=== PATIENT | male | born 1955 | race Caucasian/White ===

== ENCOUNTER → 2017-03-22 | Outpatient (CLI) | payer MEDICAID ==
[~2017-03-22] MED LIST: FINA5TAB4 PO; LIDOCAINE 1%, 20ML ONE; OMEPRAZOLE PO; SILO8CAP PO; TAMS-11 PO
== END | disposition home or self-care (01) ==
LOC: RAD 12:34
PROVIDERS: ATTEND Surgery
DX: E07.9 Disorder of thyroid, unspecified (principal)
CPT/HCPCS: 76536; 76942; J3490

== ENCOUNTER → 2017-04-19 | Outpatient (CLI) | payer MEDICAID ==
[~2017-04-19] MED LIST changes: -LIDOCAINE 1%, 20ML ONE; +OMNIPAQUE 350 MG/ML, 100ML BOTTLE ONE
== END ==
LOC: CFH 11:43
PROVIDERS: ATTEND Student in an Organized Health Care Education/Training Program
DX: Z01.818 Encounter for other preprocedural examination (principal); E04.2 Nontoxic multinodular goiter
CPT/HCPCS: 70491; Q9967

== ENCOUNTER → 2017-07-19 | Outpatient (CLI) | payer MEDICAID ==
[~2017-07-19] MED LIST changes: +ASPI-496 PO; +ATOR20TA9 PO; +ESOM40CA PO; +HYDR-3240 PO; +OXYB5TAB7 PO; +WARF10TA PO-COUM
== END | disposition home or self-care (01) ==
LOC: RAD 12:32
PROVIDERS: ATTEND Surgery
DX: E04.2 Nontoxic multinodular goiter (principal)
CPT/HCPCS: 70491; Q9967

== ENCOUNTER 2019-11-06 13:47 | Outpatient (CLI) | payer MEDICAID ==
[~2019-11-06 13:47] MED LIST changes: +ATOR20TA37 PO; -ATOR20TA9 PO; -OMNIPAQUE 350 MG/ML, 100ML BOTTLE ONE; +OXYB5TAB10 PO; -OXYB5TAB7 PO; -SILO8CAP PO; +SILO8CAP2 PO
[2019-11-06] MEDS ORDERED: LIDOCAINE 1%, 10ML ONE (14:33)
== END 2019-11-06 23:59 | disposition home or self-care (01) ==
LOC: RAD 13:47
PROVIDERS: ATTEND Surgery
DX: E04.1 Nontoxic single thyroid nodule (principal)
CPT/HCPCS: 10005; 88173; J3490

== ENCOUNTER 2020-07-08 16:07 | Inpatient (IN) | payer MEDICAID ==
[~2020-07-08] VITALS: Ht 175.3 cm; Wt 63.4 kg
[~2020-07-08 16:07] MED LIST changes: +HYDR-2214 PO; -HYDR-3240 PO
--- NOTE | 2020-07-08 16:33 | NUR ---
PT TO CT
--- NOTE | 2020-07-08 16:44 | NUR ---
PT CODE 250. HAD TUMOR REMOVED FROM BRAIN LAST WEEK. CAME IN TODAY TO HAVE ANOTHER SURGICAL PROCEDURE TOMMOROW - "TO GET A DRAIN IN HIS STOMACH" FRIEND AT BEDSIDE. PT W/ HX OF LUNG CANCER WITH METS TO BRAIN. PT IS NON VERBAL AT THIS TIME, DOES NOT ANSWER OR PARTIPATE IN ASSEMENT. WITHDRAWLS AND RESPONDS TO PHYSICAL STIMULI. PT ATTACHED TO MONITORS. HR 150'S.
--- NOTE | 2020-07-08 16:48 | NUR ---
PER CHARACTER ACTRESS, DR. MORALES STATED TO COME TO ER AND BE ADMITTED FOR SURGERY TOMORROW.
[2020-07-08] MEDS ORDERED: SODIUM CHLORIDE 0.9% 1,000 ML IV ONE (17:00)
[2020-07-08] MEDS ORDERED: SODIUM CHLORIDE FLUSH 10ML SYR IVF ONE (17:00)
[2020-07-08] MEDS ORDERED: DILTIAZEM 5 MG/ML, 5ML IV ONE (17:00)
--- NOTE | 2020-07-08 17:11 | NUR ---
med req sent to pharm
[2020-07-08] MEDS ORDERED: ATOR20TA37 PO (17:21)
[2020-07-08] MEDS ORDERED: ESOM40SU PO (17:21)
[2020-07-08] MEDS ORDERED: METO1TAB18 PO (17:21)
--- NOTE | 2020-07-08 17:27 | NUR ---
KANG TEJADA [phone]
[2020-07-08 17:36] LABS: BASOPHILS % (AUTO) 0 % (0-1); EOSINOPHILS % (AUTO) 0 % (1-7); LYMPHOCYTES % (AUTO) 14 % (22-44); MEAN CORPUSCULAR HEMOGLOBIN 32.7 pg (27.5-34.5); MEAN CORPUSCULAR HGB CONC 33.7 g/dL (33.2-36.2); MEAN PLATELET VOLUME 8.5 fL (7.4-10.4); MONOCYTES % (AUTO) 10 % (2-9); NEUTROPHILS % (AUTO) 76 % (42-75); PLATELET COUNT 205 x10^3/uL (130-400); RED BLOOD COUNT 4.49 x10^6/uL (4.38-5.82); RED CELL DISTRIBUTION WIDTH 13.2 % (9.4-14.8)
[2020-07-08 17:43] LABS: ALANINE AMINOTRANSFERASE 50 U/L (12-78); ALBUMIN 3.5 g/dL (3.4-5.0); ANION GAP 8 mmol/L (5-15); CHLORIDE 107 mmol/L (98-107); CREATININE 0.73 mg/dL (0.7-1.3)
[2020-07-08 17:46] LABS: INTERNATIONAL NORMALIZED RATIO 1.23 (0.93-1.1); PROTHROMBIN TIME 13.1 Seconds (9.6-11.5)
--- NOTE | 2020-07-08 17:53 | NUR ---
PT HR DOWN TO 80'S AFTER DOSE OF 10MG OF DILT. SPOKE WITH DR. HIRSCH HOLD DILT GTT AT THIS TIME UNLESS HR GOES ABOVE 120'S. THIS RN ATTEMPTED TO COLLECT UA, HOWEVER NO URINE WHEN STRAIGHT CATH. PT APPEARS TO BE ANURIC. DR. HIRSCH ALSO NOTIFED. VSS.
[2020-07-08 17:54] LABS: ALKALINE PHOSPHATASE 196 U/L (45-117); BILIRUBIN,TOTAL 0.7 mg/dL (0.2-1.0); FREE T4 (FREE THYROXINE) 1.44 ng/dL (0.76-1.46); TOTAL PROTEIN 7.3 g/dL (6.4-8.2); TROPONIN I < 0.015 ng/mL (0.000-0.045)
--- NOTE | 2020-07-08 18:11 | NUR ---
PT ASLEEP WITH EVEN AND UNLABORED RESPIRATIONS. MODESTA. EMILIANO.
[2020-07-08] MEDS: DILTIAZEM 125 MG in SODIUM CHLORIDE 0.9% 100 ML IV SCH (18:57)
--- NOTE | 2020-07-08 19:09 | NUR ---
HANDOFF COMPLETED. HR 120'S. STARTED ON CARIDZEM GTT. WILL CTM.
--- NOTE | 2020-07-08 19:25 | NUR ---
admitting md at . no family or caregiver avail. pt non verbal.
[2020-07-08] MEDS ORDERED: OXYcodone IR 5MG TABLET PO PRN (19:30)
[2020-07-08] MEDS ORDERED: BISACODYL 10 MG SUPP PR PRN (19:30)
[2020-07-08] MEDS ORDERED: ACETAMINOPHEN 325 MG TABLET PO PRN (19:30)
[2020-07-08] MEDS ORDERED: ONDANSETRON 2MG/ML, 2ML IVPush PRN (19:30)
[2020-07-08] MEDS ORDERED: hydrALAzine 20 MG/ML, 1ML IVPush PRN (19:30)
[2020-07-08] MEDS: DILTIAZEM 30 MG TABLET PO SCH (20:03)
[2020-07-08] MEDS: OXYBUTYNIN CHLORIDE 5 MG TABLET PO SCH (20:04)
[2020-07-08] MEDS: ATORVASTATIN 20 MG TABLET PO SCH (20:04)
[2020-07-08 20:05] LABS: TROPONIN I 0.025 ng/mL (0.000-0.045)
[2020-07-08 22:09] VITALS: BP 141/93
[2020-07-09] MEDS: D5%-0.9% NACL 1,000 ML IV SCH ×2 (00:02→13:41)
[2020-07-09 00:58] VITALS: BP 147/85
[2020-07-09] MEDS: DEXAMETHASONE 10 MG in SODIUM CHLORIDE 0.9% 50 ML IV SCH ×4 (01:43→22:25)
[2020-07-09 03:31] LABS: BASOPHILS % (AUTO) 0 % (0-1); EOSINOPHILS % (AUTO) 0 % (1-7); LYMPHOCYTES % (AUTO) 13 % (22-44); MEAN CORPUSCULAR HEMOGLOBIN 32.9 pg (27.5-34.5); MEAN CORPUSCULAR HGB CONC 33.9 g/dL (33.2-36.2); MEAN PLATELET VOLUME 8.7 fL (7.4-10.4); MONOCYTES % (AUTO) 9 % (2-9); NEUTROPHILS % (AUTO) 77 % (42-75); PLATELET COUNT 179 x10^3/uL (130-400); RED BLOOD COUNT 4.09 x10^6/uL (4.38-5.82); RED CELL DISTRIBUTION WIDTH 13.1 % (9.4-14.8)
[2020-07-09 03:43] LABS: ANION GAP 9 mmol/L (5-15); CALCIUM 8.3 mg/dL (8.5-10.1); CHLORIDE 110 mmol/L (98-107)
[2020-07-09 03:53] LABS: TROPONIN I 0.023 ng/mL (0.000-0.045)
[2020-07-09 04:08] LABS: MICROSCOPIC INDICATED
[2020-07-09] MEDS ORDERED: BACITRACIN 50,000 UNIT ONE ×2 (06:36→17:45)
[2020-07-09] MEDS ORDERED: BACITRACIN OINT 500U/GM, 15 GM ONE ×2 (06:36→17:45)
[2020-07-09] MEDS ORDERED: BUPIVACAINE/PF 0.5% ONE ×2 (06:36→17:45)
[2020-07-09] MEDS ORDERED: EPINEPHRINE 1 MG/ML, 1ML ONE ×2 (06:36→17:45)
[2020-07-09 07:22] VITALS: BP 108/76
[2020-07-09] MEDS: PANTOPRAZOLE 40MG TABLET PO SCH (07:30)
[2020-07-09] MEDS: DILTIAZEM 125 MG in SODIUM CHLORIDE 0.9% 100 ML IV SCH (07:30)
[2020-07-09] MEDS: OXYBUTYNIN CHLORIDE 5 MG TABLET PO SCH ×2 (08:17→21:00)
[2020-07-09] MEDS: METOPROLOL SUCCINATE 50 MG TAB.ER.24H PO SCH (08:17)
[2020-07-09] MEDS: FINASTERIDE 5 MG TABLET PO SCH (08:17)
[2020-07-09] MEDS: DILTIAZEM 30 MG TABLET PO SCH ×3 (08:17→21:00)
[2020-07-09] MEDS: HYDROCHLOROTHIAZIDE 25 MG TABLET PO SCH (08:18)
[2020-07-09 10:18] LABS: INTERNATIONAL NORMALIZED RATIO 1.23 (0.93-1.1); PROTHROMBIN TIME 13.1 Seconds (9.6-11.5)
[2020-07-09 11:58] LABS: TROPONIN I < 0.015 ng/mL (0.000-0.045)
[2020-07-09 12:33] VITALS: BP 105/70
[2020-07-09] MEDS ORDERED: FENTANYL PF 100 MCG/2ML ONE ×2 (17:45→19:42)
[2020-07-09] MEDS ORDERED: THROMBIN 5,000 UNIT VIAL TP ONE (17:45)
[2020-07-09] MEDS ORDERED: MIDAZOLAM 1 MG/ML, 2ML ONE (17:45)
[2020-07-09] MEDS ORDERED: BACITRACIN 50,000 UNIT IRRIG ONE (18:46)
[2020-07-09] MEDS ORDERED: BUPIVACAINE/PF-EPI 0.5% 1:200K INFIL ONE (18:46)
[2020-07-09] MEDS ORDERED: PROMETHAZINE 25 MG/ML, 1ML IVPush PRN (19:00)
[2020-07-09] MEDS ORDERED: METOPROLOL 1 MG/ML, 5ML IV PRN (19:00)
[2020-07-09] MEDS ORDERED: hydrALAzine 20 MG/ML, 1ML IV PRN (19:00)
[2020-07-09] MEDS ORDERED: OXYcodone 5 MG/5 ML ORAL.SOL UDC PO PRN ×2 (19:00→22:30)
[2020-07-09] MEDS ORDERED: ONDANSETRON 2MG/ML, 2ML IVPush PRN (19:00)
[2020-07-09] MEDS ORDERED: POTASSIUM CHLORIDE 20 MEQ TAB.ER.PRT PO ONE (19:00)
[2020-07-09] MEDS ORDERED: LABETALOL 5MG/ML, 20ML IV PRN (19:00)
[2020-07-09] MEDS ORDERED: ACETAMINOPHEN 325 MG TABLET PO PRN (19:00)
[2020-07-09] MEDS ORDERED: HYDROmorphone 1 MG/ML, 1ML INJ IVPush PRN (19:00)
[2020-07-09] MEDS: FENTANYL PF 100 MCG/2ML IV PRN ×3 (19:44→20:25)
[2020-07-09] MEDS: ATORVASTATIN 20 MG TABLET PO SCH (21:00)
[2020-07-09 21:23] VITALS: BP 122/73
[2020-07-10] MEDS: DILTIAZEM 125 MG in SODIUM CHLORIDE 0.9% 100 ML IV SCH (00:25)
[2020-07-10 01:22] VITALS: BP 135/82
[2020-07-10] MEDS ORDERED: METOPROLOL 1 MG/ML, 5ML IVPush ONE (02:30)
[2020-07-10 02:31] VITALS: BP 110/67
[2020-07-10 03:15] VITALS: BP 116/75
[2020-07-10] MEDS ORDERED: DILTIAZEM 5 MG/ML, 5ML IVPush ONE (03:30)
[2020-07-10] MEDS: DEXAMETHASONE 10 MG in SODIUM CHLORIDE 0.9% 50 ML IV SCH ×3 (04:49→19:20)
[2020-07-10 05:17] LABS: BASOPHILS % (AUTO) 0 % (0-1); EOSINOPHILS % (AUTO) 0 % (1-7); LYMPHOCYTES % (AUTO) 3 % (22-44); MEAN CORPUSCULAR HEMOGLOBIN 32.5 pg (27.5-34.5); MEAN CORPUSCULAR HGB CONC 33.1 g/dL (33.2-36.2); MEAN PLATELET VOLUME 8.6 fL (7.4-10.4); MONOCYTES % (AUTO) 3 % (2-9); NEUTROPHILS % (AUTO) 93 % (42-75); PLATELET COUNT 174 x10^3/uL (130-400); RED BLOOD COUNT 3.78 x10^6/uL (4.38-5.82); RED CELL DISTRIBUTION WIDTH 13.1 % (9.4-14.8)
[2020-07-10 05:26] LABS: ANION GAP 7 mmol/L (5-15); CALCIUM 8.3 mg/dL (8.5-10.1); CHLORIDE 111 mmol/L (98-107); CREATININE 0.69 mg/dL (0.7-1.3)
[2020-07-10 06:45] VITALS: BP 109/64
[2020-07-10] MEDS: PANTOPRAZOLE 40MG TABLET PO SCH (07:30)
[2020-07-10] MEDS: DILTIAZEM 30 MG TABLET PO SCH ×3 (09:00→21:20)
[2020-07-10] MEDS: FINASTERIDE 5 MG TABLET PO SCH (09:00)
[2020-07-10] MEDS: METOPROLOL SUCCINATE 50 MG TAB.ER.24H PO SCH (09:00)
[2020-07-10] MEDS: HYDROCHLOROTHIAZIDE 25 MG TABLET PO SCH (09:00)
[2020-07-10] MEDS: OXYBUTYNIN CHLORIDE 5 MG TABLET PO SCH ×2 (09:00→21:20)
[2020-07-10] MEDS ORDERED: CEFAZOLIN 1,000 MG IM SCH (09:00)
[2020-07-10] MEDS ORDERED: HALOPERIDOL 5 MG/ML IM PRN (09:00)
[2020-07-10 12:36] VITALS: BP 89/59
[2020-07-10] MEDS: D5%-0.9% NACL 1,000 ML IV SCH ×2 (12:44→22:20)
[2020-07-10] MEDS: CEFAZOLIN PMX 1GM/50ML 50 ML IV SCH (18:15)
[2020-07-10 20:32] VITALS: BP 114/60
[2020-07-10] MEDS: ATORVASTATIN 20 MG TABLET PO SCH (21:20)
[2020-07-10] MEDS: TEMAZEPAM 15 MG CAPSULE PO PRN (21:22)
[2020-07-11 01:14] VITALS: BP 128/95
[2020-07-11] MEDS: DEXAMETHASONE 10 MG in SODIUM CHLORIDE 0.9% 50 ML IV SCH ×4 (01:22→20:43)
[2020-07-11] MEDS: D5%-0.9% NACL 1,000 ML IV SCH (01:26)
[2020-07-11] MEDS: CEFAZOLIN PMX 1GM/50ML 50 ML IV SCH ×3 (02:13→18:40)
[2020-07-11 05:20] LABS: ANION GAP 8 mmol/L (5-15); CALCIUM 8.5 mg/dL (8.5-10.1); CHLORIDE 109 mmol/L (98-107)
[2020-07-11 05:23] LABS: CREATININE 0.47 mg/dL (0.7-1.3)
[2020-07-11 05:26] LABS: BASOPHILS % (AUTO) 0 % (0-1); EOSINOPHILS % (AUTO) 0 % (1-7); LYMPHOCYTES % (AUTO) 3 % (22-44); MEAN CORPUSCULAR HEMOGLOBIN 32.7 pg (27.5-34.5); MEAN CORPUSCULAR HGB CONC 33.6 g/dL (33.2-36.2); MEAN PLATELET VOLUME 9.1 fL (7.4-10.4); MONOCYTES % (AUTO) 3 % (2-9); NEUTROPHILS % (AUTO) 94 % (42-75); PLATELET COUNT 171 x10^3/uL (130-400); RED BLOOD COUNT 3.85 x10^6/uL (4.38-5.82); RED CELL DISTRIBUTION WIDTH 13.4 % (9.4-14.8)
[2020-07-11 07:34] VITALS: BP 122/88
[2020-07-11] MEDS ORDERED: POTASSIUM CHLORIDE 20 MEQ TAB.ER.PRT PO ONE (09:00)
[2020-07-11] MEDS: FINASTERIDE 5 MG TABLET PO SCH (09:48)
[2020-07-11] MEDS: PANTOPRAZOLE 40MG TABLET PO SCH (09:49)
[2020-07-11] MEDS: HYDROCHLOROTHIAZIDE 25 MG TABLET PO SCH (09:49)
[2020-07-11] MEDS: METOPROLOL SUCCINATE 50 MG TAB.ER.24H PO SCH (09:50)
[2020-07-11] MEDS: OXYBUTYNIN CHLORIDE 5 MG TABLET PO SCH ×2 (09:50→20:44)
[2020-07-11] MEDS: DILTIAZEM 30 MG TABLET PO SCH ×3 (09:50→20:44)
[2020-07-11 13:16] VITALS: BP 113/79
[2020-07-11] MEDS ORDERED: OMNIPAQUE 350 MG/ML, 75ML BOTTLE ONE (15:20)
[2020-07-11 19:57] VITALS: BP 120/86
[2020-07-11] MEDS: ATORVASTATIN 20 MG TABLET PO SCH (20:43)
[2020-07-11 23:08] LABS: TROPONIN I < 0.015 ng/mL (0.000-0.045)
[2020-07-11 23:33] LABS: FREE T4 (FREE THYROXINE) 1.27 ng/dL (0.76-1.46)
[2020-07-12] MEDS: DILTIAZEM 125 MG in SODIUM CHLORIDE 0.9% 100 ML IV SCH ×2 (00:33→14:32)
[2020-07-12 01:12] VITALS: BP 122/80
[2020-07-12] MEDS: DEXAMETHASONE 10 MG in SODIUM CHLORIDE 0.9% 50 ML IV SCH ×4 (01:32→22:02)
[2020-07-12] MEDS: D5%-0.9% NACL 1,000 ML IV SCH (01:33)
[2020-07-12] MEDS: CEFAZOLIN PMX 1GM/50ML 50 ML IV SCH ×3 (02:14→18:14)
[2020-07-12 05:53] LABS: BASOPHILS % (AUTO) 0 % (0-1); EOSINOPHILS % (AUTO) 0 % (1-7); LYMPHOCYTES % (AUTO) 2 % (22-44); MEAN CORPUSCULAR HEMOGLOBIN 32.6 pg (27.5-34.5); MEAN CORPUSCULAR HGB CONC 33.8 g/dL (33.2-36.2); MEAN PLATELET VOLUME 9.5 fL (7.4-10.4); MONOCYTES % (AUTO) 2 % (2-9); NEUTROPHILS % (AUTO) 96 % (42-75); PLATELET COUNT 152 x10^3/uL (130-400); RED BLOOD COUNT 3.92 x10^6/uL (4.38-5.82); RED CELL DISTRIBUTION WIDTH 13.5 % (9.4-14.8)
[2020-07-12 06:11] LABS: CHLORIDE 104 mmol/L (98-107)
[2020-07-12 06:47] LABS: ALANINE AMINOTRANSFERASE 285 U/L (12-78); ALBUMIN 2.8 g/dL (3.4-5.0); ALKALINE PHOSPHATASE 209 U/L (45-117); ANION GAP 10 mmol/L (5-15); BILIRUBIN,TOTAL 0.5 mg/dL (0.2-1.0); CALCIUM 8.7 mg/dL (8.5-10.1); CREATININE 0.58 mg/dL (0.7-1.3)
[2020-07-12 07:00] VITALS: BP 111/69
[2020-07-12] MEDS: OXYBUTYNIN CHLORIDE 5 MG TABLET PO SCH ×2 (09:16→21:33)
[2020-07-12] MEDS: HYDROCHLOROTHIAZIDE 25 MG TABLET PO SCH (09:17)
[2020-07-12] MEDS: FINASTERIDE 5 MG TABLET PO SCH (09:19)
[2020-07-12] MEDS: METOPROLOL SUCCINATE 50 MG TAB.ER.24H PO SCH (09:22)
[2020-07-12] MEDS: PANTOPRAZOLE 40MG TABLET PO SCH (09:23)
[2020-07-12] MEDS: POLYETHYLENE GLYCOL 17 GM PACKET PO PRN (12:35)
[2020-07-12] MEDS: DOCUSATE 100 MG CAPSULE PO PRN (12:35)
[2020-07-12 12:43] VITALS: BP 132/76
[2020-07-12] MEDS ORDERED: POTASSIUM CHLORIDE 40 MEQ in SODIUM CHLORIDE 0.9% 500 ML IV ONE (18:00)
[2020-07-12 19:20] VITALS: BP 130/84
[2020-07-12] MEDS: ATORVASTATIN 20 MG TABLET PO SCH (21:33)
[2020-07-12] MEDS: MELATONIN 5 MG TABLET PO PRN (21:33)
[2020-07-13] MEDS: D5%-0.9% NACL 1,000 ML IV SCH ×2 (00:37→11:17)
[2020-07-13 02:51] VITALS: BP 113/71
[2020-07-13] MEDS: DILTIAZEM 125 MG in SODIUM CHLORIDE 0.9% 100 ML IV SCH ×2 (02:59→19:48)
[2020-07-13] MEDS: DEXAMETHASONE 10 MG in SODIUM CHLORIDE 0.9% 50 ML IV SCH ×4 (04:22→22:15)
[2020-07-13 05:24] LABS: BASOPHILS % (AUTO) 0 % (0-1); EOSINOPHILS % (AUTO) 0 % (1-7); LYMPHOCYTES % (AUTO) 4 % (22-44); MEAN CORPUSCULAR HEMOGLOBIN 32.6 pg (27.5-34.5); MEAN CORPUSCULAR HGB CONC 34.2 g/dL (33.2-36.2); MEAN PLATELET VOLUME 9.2 fL (7.4-10.4); MONOCYTES % (AUTO) 4 % (2-9); NEUTROPHILS % (AUTO) 93 % (42-75); PLATELET COUNT 128 x10^3/uL (130-400); RED BLOOD COUNT 4.03 x10^6/uL (4.38-5.82); RED CELL DISTRIBUTION WIDTH 13.3 % (9.4-14.8)
[2020-07-13 05:29] LABS: CHLORIDE 97 mmol/L (98-107)
[2020-07-13 05:35] LABS: ALANINE AMINOTRANSFERASE 209 U/L (12-78); ALBUMIN 2.8 g/dL (3.4-5.0); ALKALINE PHOSPHATASE 193 U/L (45-117); ANION GAP 10 mmol/L (5-15); BILIRUBIN,TOTAL 0.6 mg/dL (0.2-1.0); CALCIUM 8.3 mg/dL (8.5-10.1); CREATININE 0.46 mg/dL (0.7-1.3); TOTAL PROTEIN 5.8 g/dL (6.4-8.2)
[2020-07-13] MEDS: CEFAZOLIN PMX 1GM/50ML 50 ML IV SCH ×3 (05:55→21:42)
[2020-07-13] MEDS ORDERED: SODIUM CHLORIDE 0.9% 1,000 ML IV SCH (07:30)
[2020-07-13 07:45] VITALS: BP 107/70
[2020-07-13] MEDS: FINASTERIDE 5 MG TABLET PO SCH (09:19)
[2020-07-13] MEDS: HYDROCHLOROTHIAZIDE 25 MG TABLET PO SCH (09:20)
[2020-07-13] MEDS: OXYBUTYNIN CHLORIDE 5 MG TABLET PO SCH ×2 (09:20→20:03)
[2020-07-13] MEDS: METOPROLOL SUCCINATE 50 MG TAB.ER.24H PO SCH (09:21)
[2020-07-13] MEDS: PANTOPRAZOLE 40MG TABLET PO SCH (09:21)
[2020-07-13] MEDS ORDERED: DILTIAZEM 5 MG/ML, 5ML IVPush ONE ×3 (09:30→13:30)
[2020-07-13] MEDS: DOCUSATE 100 MG CAPSULE PO PRN (11:17)
[2020-07-13] MEDS: POLYETHYLENE GLYCOL 17 GM PACKET PO PRN (11:17)
[2020-07-13 13:57] VITALS: BP 108/67
[2020-07-13] MEDS ORDERED: DILTIAZEM 30 MG TABLET PO SCH ×2 (17:00→19:00)
[2020-07-13 18:53] VITALS: BP 107/65
[2020-07-13] MEDS: ATORVASTATIN 20 MG TABLET PO SCH (20:03)
[2020-07-14] MEDS: D5%-0.9% NACL 1,000 ML IV SCH (00:04)
[2020-07-14 04:27] VITALS: BP 113/79
[2020-07-14] MEDS: DEXAMETHASONE 10 MG in SODIUM CHLORIDE 0.9% 50 ML IV SCH ×4 (04:50→22:46)
[2020-07-14] MEDS: CEFAZOLIN PMX 1GM/50ML 50 ML IV SCH ×3 (05:21→22:46)
[2020-07-14 06:06] LABS: BASOPHILS % (AUTO) 0 % (0-1); EOSINOPHILS % (AUTO) 0 % (1-7); LYMPHOCYTES % (AUTO) 2 % (22-44); MEAN CORPUSCULAR HEMOGLOBIN 32.7 pg (27.5-34.5); MEAN CORPUSCULAR HGB CONC 34.3 g/dL (33.2-36.2); MEAN PLATELET VOLUME 9.2 fL (7.4-10.4); MONOCYTES % (AUTO) 4 % (2-9); NEUTROPHILS % (AUTO) 94 % (42-75); PLATELET COUNT 139 x10^3/uL (130-400); RED BLOOD COUNT 4.27 x10^6/uL (4.38-5.82)
[2020-07-14 06:18] LABS: ANION GAP 9 mmol/L (5-15); CALCIUM 8.5 mg/dL (8.5-10.1); CHLORIDE 96 mmol/L (98-107)
[2020-07-14 06:20] LABS: CREATININE 0.44 mg/dL (0.7-1.3)
[2020-07-14 06:49] VITALS: BP 126/81
[2020-07-14] MEDS: OXYBUTYNIN CHLORIDE 5 MG TABLET PO SCH ×2 (08:04→20:08)
[2020-07-14] MEDS: DILTIAZEM 125 MG in SODIUM CHLORIDE 0.9% 100 ML IV SCH (08:05)
[2020-07-14] MEDS: PANTOPRAZOLE 40MG TABLET PO SCH (08:05)
[2020-07-14] MEDS: METOPROLOL SUCCINATE 50 MG TAB.ER.24H PO SCH (08:05)
[2020-07-14] MEDS: FINASTERIDE 5 MG TABLET PO SCH (08:06)
[2020-07-14] MEDS ORDERED: NS + 40MEQ KCL 1,000 ML IV SCH (09:00)
[2020-07-14] MEDS: HYDROCHLOROTHIAZIDE 25 MG TABLET PO SCH (09:58)
[2020-07-14 12:55] VITALS: BP 137/80
[2020-07-14] MEDS ORDERED: DILTIAZEM 30 MG TABLET ONE (17:38)
[2020-07-14] MEDS: DILTIAZEM 60 MG TABLET PO SCH ×2 (17:39→22:55)
[2020-07-14 18:56] VITALS: BP 117/72
[2020-07-14] MEDS: ATORVASTATIN 20 MG TABLET PO SCH (20:08)
[2020-07-14] MEDS: TEMAZEPAM 15 MG CAPSULE PO PRN (20:09)
[2020-07-15 00:37] VITALS: BP 118/82
[2020-07-15 04:50] VITALS: BP 119/79
[2020-07-15] MEDS: DEXAMETHASONE 10 MG in SODIUM CHLORIDE 0.9% 50 ML IV SCH ×4 (04:51→21:37)
[2020-07-15] MEDS: DILTIAZEM 60 MG TABLET PO SCH ×4 (04:51→23:05)
[2020-07-15] MEDS: CEFAZOLIN PMX 1GM/50ML 50 ML IV SCH ×3 (04:51→21:37)
[2020-07-15 05:41] LABS: ALANINE AMINOTRANSFERASE 184 U/L (12-78); ALBUMIN 2.7 g/dL (3.4-5.0); ANION GAP 8 mmol/L (5-15); CALCIUM 8.1 mg/dL (8.5-10.1); CHLORIDE 98 mmol/L (98-107); CREATININE 0.44 mg/dL (0.7-1.3)
[2020-07-15 05:43] LABS: ALKALINE PHOSPHATASE 188 U/L (45-117); BILIRUBIN,TOTAL 0.5 mg/dL (0.2-1.0); TOTAL PROTEIN 5.8 g/dL (6.4-8.2)
[2020-07-15] MEDS: LORazepam 2 MG/ML, 1ML IVPush PRN (06:01)
[2020-07-15 07:13] VITALS: BP 105/70
[2020-07-15] MEDS: FINASTERIDE 5 MG TABLET PO SCH (09:20)
[2020-07-15] MEDS: OXYBUTYNIN CHLORIDE 5 MG TABLET PO SCH ×2 (09:20→21:37)
[2020-07-15] MEDS: PANTOPRAZOLE 40MG TABLET PO SCH (09:20)
[2020-07-15 11:59] VITALS: BP 113/72
[2020-07-15 19:30] VITALS: BP 114/72
[2020-07-15] MEDS: ATORVASTATIN 20 MG TABLET PO SCH (21:37)
[2020-07-15] MEDS: MELATONIN 5 MG TABLET PO PRN (21:37)
[2020-07-16 01:50] VITALS: BP 103/74
[2020-07-16] MEDS: DEXAMETHASONE 10 MG in SODIUM CHLORIDE 0.9% 50 ML IV SCH ×4 (04:31→23:48)
[2020-07-16] MEDS: CEFAZOLIN PMX 1GM/50ML 50 ML IV SCH ×3 (05:37→23:49)
[2020-07-16] MEDS: DILTIAZEM 60 MG TABLET PO SCH ×3 (05:37→18:04)
[2020-07-16] MEDS: PANTOPRAZOLE 40MG TABLET PO SCH (05:43)
[2020-07-16 07:59] VITALS: BP 117/55
[2020-07-16] MEDS: OXYBUTYNIN CHLORIDE 5 MG TABLET PO SCH ×2 (09:27→21:36)
[2020-07-16] MEDS: FINASTERIDE 5 MG TABLET PO SCH (09:27)
[2020-07-16 13:24] VITALS: BP 103/62
[2020-07-16 19:21] VITALS: BP 110/81
[2020-07-16] MEDS: ATORVASTATIN 20 MG TABLET PO SCH (21:36)
[2020-07-16] MEDS: MELATONIN 5 MG TABLET PO PRN (21:36)
[2020-07-17] VITALS: BP 114/79
[2020-07-17] MEDS: DILTIAZEM 60 MG TABLET PO SCH ×4 (00:01→18:18)
[2020-07-17] MEDS: DEXAMETHASONE 10 MG in SODIUM CHLORIDE 0.9% 50 ML IV SCH ×3 (05:58→18:18)
[2020-07-17 06:03] VITALS: BP 113/68
[2020-07-17] MEDS: PANTOPRAZOLE 40MG TABLET PO SCH (08:25)
[2020-07-17] MEDS: CEFAZOLIN PMX 1GM/50ML 50 ML IV SCH ×2 (08:25→15:36)
[2020-07-17] MEDS: FINASTERIDE 5 MG TABLET PO SCH (08:25)
[2020-07-17] MEDS: OXYBUTYNIN CHLORIDE 5 MG TABLET PO SCH ×2 (08:25→21:42)
[2020-07-17 14:05] VITALS: BP 125/72
[2020-07-17 18:26] VITALS: BP 121/80
[2020-07-17] MEDS: ATORVASTATIN 20 MG TABLET PO SCH (21:42)
[2020-07-18] MEDS: DILTIAZEM 60 MG TABLET PO SCH ×3 (00:01→11:32)
[2020-07-18] MEDS: DEXAMETHASONE 10 MG in SODIUM CHLORIDE 0.9% 50 ML IV SCH ×3 (00:01→13:00)
[2020-07-18] MEDS: CEFAZOLIN PMX 1GM/50ML 50 ML IV SCH ×2 (00:01→08:06)
[2020-07-18 01:02] VITALS: BP 125/79
[2020-07-18] MEDS: LORazepam 2 MG/ML, 1ML IVPush PRN (04:02)
[2020-07-18 07:21] VITALS: BP 116/74
[2020-07-18] MEDS: FINASTERIDE 5 MG TABLET PO SCH (07:51)
[2020-07-18] MEDS: PANTOPRAZOLE 40MG TABLET PO SCH (08:01)
[2020-07-18] MEDS: OXYBUTYNIN CHLORIDE 5 MG TABLET PO SCH (08:02)
[2020-07-18] MEDS ORDERED: HALO2ORA3 PO (12:18)
[2020-07-18] MEDS ORDERED: MORP20SO PO (12:18)
[2020-07-18] MEDS ORDERED: LORA2ORA7 PO (12:18)
[2020-07-18] MEDS ORDERED: DEXA6TAB6 PO (12:20)
[2020-07-18 13:04] VITALS: BP 123/78
== END 2020-07-18 13:39 | disposition hospice, home (50) | DRG 22 ==
LOC: OR 17:20 → EDIP 19:01 → 4EST 21:40
PROVIDERS: ADMIT Internal Medicine; ATTEND Internal Medicine
PROC: 00164J6 Bypass Cerebral Ventricle to Peritoneal Cavity with Synthetic Substitute, Percutaneous Endoscopic Approach (ICD-10-PCS; principal; 2020-07-09 17:00)
DX: G91.1 Obstructive hydrocephalus (principal); K72.00 Acute and subacute hepatic failure without coma; G93.5 Compression of brain; E43 Unspecified severe protein-calorie malnutrition; G93.41 Metabolic encephalopathy; C79.31 Secondary malignant neoplasm of brain; D68.69 Other thrombophilia; R13.10 Dysphagia, unspecified; I11.0 Hypertensive heart disease with heart failure; I50.22 Chronic systolic (congestive) heart failure; Z20.822 Contact with and (suspected) exposure to COVID-19; I48.92 Unspecified atrial flutter; I48.91 Unspecified atrial fibrillation; C34.90 Malignant neoplasm of unspecified part of unspecified bronchus or lung; D72.829 Elevated white blood cell count, unspecified; Z68.20 Body mass index [BMI] 20.0-20.9, adult; E78.5 Hyperlipidemia, unspecified; F17.210 Nicotine dependence, cigarettes, uncomplicated; K21.9 Gastro-esophageal reflux disease without esophagitis; N40.0 Benign prostatic hyperplasia without lower urinary tract symptoms; R62.7 Adult failure to thrive; Z51.5 Encounter for palliative care; Z66 Do not resuscitate; Z85.850 Personal history of malignant neoplasm of thyroid; Z86.79 Personal history of other diseases of the circulatory system; Z95.2 Presence of prosthetic heart valve; Z79.01 Long term (current) use of anticoagulants
CPT/HCPCS: 36415; 74230; 96360; 96361; 99291; J7042; S0020; 70450; 71275; 80048; 80053; 81001; 82607; 83605; 83735; 84100; 84439; 84443; 84481; 84484; 85025; 85610; 85730; 86850; 86900; 87040; 87635; 93005; 93306; C1729; G0378; J0171; J0690; J1100; J1170; J2250; J3010; J3480; Q9967; C1727; C1894; J2060; J7030; J7040